=== PATIENT | male | born 1990 | race Two or more races ===

== ENCOUNTER 2024-10-14 23:51 | Emergency (ER) | payer SELFPAY ==
[~2024-10-14] VITALS: Ht 170.2 cm; Wt 78.2 kg
[2024-10-14 23:56] VITALS: BP 153/83; PULSE 89; RESP 20; TEMP 97.9; O2SAT 99
== END 2024-10-15 01:30 | disposition left against medical advice (07) ==
LOC: EMS 23:53
DX: F41.9 Anxiety disorder, unspecified (principal); Z53.21 Procedure and treatment not carried out due to patient leaving prior to being seen by health care provider